=== PATIENT | female | born 1955 | race Caucasian/White ===

== ENCOUNTER 2016-10-24 12:03 | Emergency (ER) | payer OTHER ==
[~2016-10-24] VITALS: Ht 170.2 cm; Wt 67.6 kg
[~2016-10-24 12:03] MED LIST: METHOCARBAMOL500 MG PO; METOPROLOL TART25 M1 PO; MOTRIN800 MG PO; OMEPRAZOLE DR20 M1 PO; PRILOSEC40 MG PO; ZES20 PO; ZOF4 PO; ZOVIRAX51 TOP
[2016-10-24 12:45] LABS: BASOPHIL % 0.1 % (0-2); PLATELET COUNT 266 x10^3mcL (130-400); RED CELL DISTRIBUTION WIDTH 14.2 % (11.5-14.5)
[2016-10-24 12:47] LABS: CALCIUM 9.6 mg/dL (8.5-10.1); CARBON DIOXIDE 26.2 mmol/L (21-32); CHLORIDE SERUM 101 mmol/L (98-107); GFR1 > 60 mL/min; GLUCOSE SERUM 137 mg/dL (74-106); POTASSIUM SERUM 3.1 mmol/L (3.5-5.1); SODIUM SERUM 141 mmol/L (136-145)
[2016-10-24 12:52] LABS: ALBUMIN 4.5 g/dL (3.4-5.0); ALKALINE PHOSPHATASE 64 U/L (46-116); ALT/SGPT 19 U/L (14-59); AMYLASE 81 U/L (25-115); AST/SGOT 20 U/L (15-37); BILIRUBIN TOTAL 0.88 mg/dL (0.20-1.00); LIPASE 99 IU/L (73-393)
[2016-10-24 12:55] LABS: TOTAL PROTEIN, SERUM 8.7 g/dL (6.4-8.2)
[2016-10-24 16:17] VITALS: BP 169/76
== END 2016-10-24 16:19 | disposition home or self-care (01) ==
LOC: ED 12:03
PROVIDERS: Emergency Medicine
DX: R10.13 Epigastric pain (principal); K44.9 Diaphragmatic hernia without obstruction or gangrene; E87.6 Hypokalemia; E86.0 Dehydration; R11.10 Vomiting, unspecified; I10 Essential (primary) hypertension; J45.909 Unspecified asthma, uncomplicated
CPT/HCPCS: 83880; J2405; J3490; J7030